=== PATIENT | female | born 1945 | race Caucasian/White ===

== ENCOUNTER → 2020-12-23 | Outpatient (CLI) | payer SELFPAY ==
[2020-12-23 10:45] LABS: Appearance,Urine Clear (Clear); Bilirubin,Urine Negative (Negative); Blood,Urine Negative (Negative); Color,Urine Yellow; Glucose,Urine (UA) Negative (Negative); Ketones,Urine Negative (Negative); Leukocyte Esterase,Urine Negative (Negative); Nitrite,Urine Negative (Negative); PH, Urine 6.5 (5.0-8.0); Protein,Urine Negative (Negative); Specific Gravity,Urine 1.012 (1.001-1.035); Urobilinogen,Urine <2.0 mg/dL (<2.0)
[2020-12-23 10:46] LABS: HCT 40.9 % (34.0-46.0); HGB 13.7 gm/dL (11.4-16.0); MCH 32.2 pg (25.0-35.0); MCHC 33.6 g/dL (31.0-37.0); Platelet Count 262 k/uL (150-450); RBC 4.26 m/uL (3.80-5.40); WBC 5.7 k/uL (3.8-10.6)
[2020-12-23 10:56] LABS: ALT 16 U/L (4-34); AST 23 U/L (14-36); African American GFR (CKD) >90 (>60 ml/min/1.73 sqM); Albumin 4.4 g/dL (3.5-5.0); Alkaline Phosphatase 74 U/L (38-126); Anion Gap 9 mmol/L; Blood Urea Nitrogen 7 mg/dL (7-17); Calcium 9.5 mg/dL (8.4-10.2); Carbon Dioxide 27 mmol/L (22-30); Chloride 97 mmol/L (98-107); Glucose 115 mg/dL (74-99); Non-African American GFR(CKD) >90 (>60 ml/min/1.73 sqM); Potassium 4.4 mmol/L (3.5-5.1); Sodium 133 mmol/L (137-145); Total Bilirubin 0.5 mg/dL (0.2-1.3); Total Protein 6.4 g/dL (6.3-8.2)
[2020-12-23 11:03] LABS: INR 0.9 (<1.2); Partial Thromboplastin Time 22.7 sec (22.0-30.0); Prothrombin Time 10.1 sec (9.0-12.0)
== END | disposition home or self-care (01) ==
LOC: LABPAT 09:17
PROVIDERS: ATTEND Orthopaedic Surgery
DX: Z01.818 Encounter for other preprocedural examination (principal); M16.11 Unilateral primary osteoarthritis, right hip; R94.31 Abnormal electrocardiogram [ECG] [EKG]
CPT/HCPCS: 36415; 80053; 81003; 85027; 85610; 85730; 87070; 93005

== ENCOUNTER 2020-12-31 11:22 | Day surgery (SDC) | payer SELFPAY ==
[2020-12-30 08:50] VITALS: BMI 19.2
[~2020-12-31 11:22] MED LIST: ACETAMINOPHEN TAB 500 MG TAB PO PRN; GABAPENTIN 300 MG CAP PO PRN; HYDROcodone/APAP 7.5-325MG 1 EACH TAB PO PRN; HYDROmorphone 0.2 MG/1 ML SYRINGE IVP PRN; HYDROmorphone 0.5 MG/0.5 ML SYRINGE IVP PRN; MAGNESIUM HYDROXIDE 2,400 MG/10 ML CUP PO PRN; MELOXICAM 7.5 MG TAB PO PRN; NALOXONE 0.4 MG/ML 1 ML VIAL IV PRN; ONDANSETRON 4 MG/2 ML VIAL IVP ONE; ONDANSETRON 4 MG/2 ML VIAL IVP PRN; TRANEXAMIC ACID 1,000 MG in SODIUM CHLORIDE 0.9% 100 ML IVPB PRN
[2020-12-31] MEDS: LACTATED RINGERS 1,000 ML IV SCH (12:20)
[2020-12-31] MEDS ORDERED: LIDOCAINE 1% (10MG/ML) FOR IV START INTRADERMA ONE (12:20)
[2020-12-31] MEDS ORDERED: DEXAMETHASONE SOD PHOSPHATE 4 MG/ML 1 ML VIAL IV ONE (12:25)
[2020-12-31] MEDS ORDERED: SODIUM CHLORIDE 0.9% IRRIG 1,000 ML BTL IRRIGATION ONE (13:31)
[2020-12-31] MEDS ORDERED: TRANEXAMIC ACID 1,000 MG/10 ML VIAL ONE (13:31)
[2020-12-31] MEDS ORDERED: HEPARIN SODIUM,PORCINE 10,000 UNIT/ML 1 ML VIAL ONE (13:31)
[2020-12-31] MEDS ORDERED: MIDAZOLAM 2 MG/2 ML VIAL ONE (13:31)
[2020-12-31] MEDS ORDERED: SODIUM CHLORIDE 0.9% 100 ML BAG ONE (13:31)
[2020-12-31] MEDS ORDERED: ceFAZolin 1,000 MG in SODIUM CHLORIDE 0.9% 1,000 ML IRRIGATION ONE (13:36)
[2020-12-31] MEDS: ROPIVACAINE/EPI/CLONIDINE/KET 50 ML SYRINGE MISCELLANE PRN ×2 (13:37→14:51)
[2020-12-31] MEDS ORDERED: LACTATED RINGERS 1,000 ML IV ONE (14:52)
--- NOTE | 2020-12-31 15:02 | P.OP ---
Date of Procedure: 12/31/20 Preoperative Diagnosis: Severe Osteoarthritis right hip Postoperative Diagnosis: Severe osteoarthritis right hip. Procedure(s) Performed: Right total hip arthroplasty with a direct anterior approach Implants: [employer] Polarstem standard size 2 [employer] R3, 3 hole hemispherical acetabular shell, 52 mm [employer] Reflection 6.5 mm cancellus screw, 20 mm 2, 25 mm [employer] R3, XLPE 20 acetabular liner [employer] Oxinium femoral head 36 m, +0 All components were press-fit. The articulation is Oxinium on polyethylene. Anesthesia: spinal Surgeon: Damien Falcon Licensed Chemical Spray Technician #1: Vangie Jauregui Estimated Blood Loss (ml): 150 (67 mL returned with Cell Saver) Pathology: other (Femoral head) Condition: stable Disposition: PACU Indications for Procedure: After failure of conservative treatment we discussed the surgical and nonsurgical treatment options at length. Patient wishes to proceed with a total hip arthroplasty with a direct anterior approach. Complications specific to this procedure were discussed at length, including but not limited to infection, leg length discrepancy, dislocation, nerve injury, and fracture. Covid-19 was also discussed at length with the patient, and they are aware of the current policies and procedures. The patient was given the option of delaying surgery, but they elect to proceed knowing these risks. Patient is aware of all these complications and informed consent was obtained Operative Findings: The operative findings are consistent with severe osteoarthritis of the right hip Description of Procedure: Patient was seen and evaluated in the preoperative area and the consent was reviewed. The operative site was marked with a skin marker. The patient was then brought to the operating room and given preoperative antibiotics intravenously. 1 g of Tranexamic acid was also given intravenously. A spinal anesthetic was administered by the anesthesia department. The patient was then placed on the [place] table with the bony prominences well-padded. The hip area was then prepped with a ChloraPrep solution and draped in the usual sterile fashion. A universal timeout was then performed, which confirmed the patient's name, surgical site, ALLERGIES, and procedure being performed on the consent. Next the incision site was located at 1 cm distal and 2 cm lateral to the anterior s uperior iliac spine. The skin and subcutaneous tissues were sharply incised. Incision was carefully dissected down to the fascia overlying the tensor fascia lyla muscle. This fascia was then incised in line with the incision. Care was taken to stay laterally in order to avoid injuring the lateral femoral cutaneous nerve. Next, using blunt finger dissection, the tensor fascia lyla muscle was d issected off its investing fascia. The muscle was then carefully retracted laterally with a cobra retractor over the lateral neck of the femur. Next, the circumflex vessels were identified and cauterized using the AquaMantis device. The anterior hip capsule was then exposed. The capsule was then opened and an inverted T fashion. Cobra retractors were then placed intracapsularly. The retractors were maintained intracapsular throughout the procedure. The proximal femur was then visualized. A small amount of traction was placed on the leg. The femoral neck was then osteotomized appropriate level above the lesser trochanter. A small wedge of bone was then removed from the remaining femoral head. Next, using a corkscrew the femoral head was removed from the acetabulum. On gross visual inspection, the femoral head had complete loss of articular cartilage and multiple periarticular osteophytes. The femoral head was then measured. Attention was then turned to the acetabulum. The acetabulum was exposed and any remaining labrum was excised. Sequential reaming of the acetabulum was performed using fluoroscopic guidance until there was a good bed of bleeding cancellus bone. When the appropriate size was reached, a trial was then placed. The position and fit of the trial was checked with fluoroscopy. The trial was then removed. Then, using fluoroscopic guidance, the final implant was impacted at 20 of anteversion and 40 of abduction, and fully seated in the acetabulum. 2 screws were then placed in the acetabulum. Again fluoroscopy was used to check position of the screws. Next, the liner was then impacted, with a 20 elevated liner located in the anterior superior quadrant. Component locking was confirmed. Attention was then directed to the femur. With the aid of the [place] table, the femur was externally rotated to approximately 130, extended, and adducted under the opposite leg. A side hook was then placed under the proximal femur, and the side hook elevator was used to elevate the proximal femur while releasing the capsule. Retractors were then placed. A capsular release was performed, as well as a release of the conjoined tendon, which afforded excellent visualization of the proximal femur. Next, a box osteotome was used to lateralize the proximal femur. A assistant merchandise manager was then used to locate the femoral canal. Sequential broaching was then performed with appropriate size which afforded excellent fixation in the proximal femur. A trial was then placed with appropriate head and neck, and the hip was gently reduced with the aid of the [place] table. Fluoroscopy was then used to check position of the components, as well as to ensure equal leg lengths. The hip was then gently dislocated and the trials were then removed. Final implants were then impacted and the hip was again reduced. Final fluoroscopic x-rays confirmed that the components were in anatomic position, as well as equal leg lengths. The hip was also taken through range of motion, and found to be stable. The hip was then copiously irrigated with antibiotic solution with pulsatile lavage. The hip was then irrigated with Irrisept solution. The soft tissues we re then injected with a ropivacaine solution, which consisted of 246.25 mg of ropivacaine, 0.5 mg of epinephrine, 30 mg of Toradol, 80 g of clonidine, and 48.45 mL of sterile water, for a total of 100 mL of fluid injected. A second dose of 1 g of Tranexamic acid was also given intravenously. Any blood collected by Cell Saver was then returned to the patient at this time. The fascia was then closed with 2-0 strata fix suture. The subcutaneous tissue was closed with 3-0 Vicryl. The subcuticular tissue was closed with 3-0 strata fix suture. The skin was then closed with Exofin skin glue. After the glue and dried, and Optifoam silver impregnated dressing was applied. The patient was then transferred to the recovery room in stable condition. The administrative assistant URI Hamilton was required due to the complexity of surgery, and the need for skilled assistant director for positioning, draping, exposure, retraction, and closure of the wound.
--- NOTE | 2020-12-31 15:21 | XR ---
Fluoroscopy INDICATION: Pain FINDINGS: Fluoroscopy time: 4 seconds. Images obtained: 6. IMPRESSIONS: 1. Documentation of fluoroscopy.
--- NOTE | 2020-12-31 15:26 | FL ---
Fluoroscopy INDICATION: Pain FINDINGS: Fluoroscopy time: 47 seconds. Images obtained: 0. IMPRESSIONS: 1. Documentation of fluoroscopy.
--- NOTE | 2020-12-31 16:19 | XR ---
EXAMINATION TYPE: XR Hip Limited RT DATE OF EXAM: 12/31/2020 COMPARISON: None HISTORY: Status post replacement TECHNIQUE: AP right hip FINDINGS: There is a femoral prosthesis place with acetabular component. No acute fractures are evide nt. Postsurgical changes are evident within the soft tissues of the proximal thigh. IMPRESSION: 1. No acute fractures post right hip replacement
--- NOTE | 2020-12-31 16:52 | P.CONS ---
History of Present Illness - Reason for Consult Consult date: 12/31/20 Medical management Requesting physician: Damien Falcon - Chief Complaint Right hip osteoarthritis - History of Present Illness This is a 75-year-old female with no significant past medical history other than severe osteoarthritis of the right hip who was admitted to the hospital for elective total right hip arthroplasty. She is postoperative day #0. She does not have any complaints. I was asked to see her for medical management. Patient denies any past medical history. Review of Systems Review of system: 14 points review of systems were obtained and were negative except to what were mentioned in the HPI. Past Medical History Past Medical History: GERD/Reflux, Musculoskeletal Disorder, Osteoarthritis (OA) Additional Past Medical History / Comment(s): Osteoporosis. Hiatal hernia. History of Any Multi-Drug Resistant Organisms: None Reported Past Surgical History: Hernia Repair, Tonsillectomy Additional Past Surgical History / Comment(s): RIGHT INGUINAL HERNIA REPAIR, RIGHT HAND SURGERY, Bilateral Cataract surgery. Past Anesthesia/Blood Transfusion Reactions: No Reported Reaction, Motion Sickness Past Psychological History: No Psychological Hx Reported Smoking Status: Never smoker Past Alcohol Use History: Rare Past Drug Use History: None Reported - Past Family History Mother Family Medical History: Cancer Additional Family Medical History / Comment(s): Melanoma. Medications and Allergies Home Medications Medication Instructions Recorded Confirmed Type Acetaminophen [Tylenol Extra 500 mg PO QID PRN 04/23/20 12/30/20 History Strength] Cholecalciferol [Vitamin D3 (25 2,000 unit PO BID 04/23/20 12/30/20 History Mcg = 1000 Iu)] Cyanocobalamin [Vitamin B-12 1,000 mcg SQ QMONTHLY 04/23/20 12/30/20 History Injection] Denosumab [Prolia] 60 mg SQ Q180D 04/23/20 12/30/20 History Omega3/Dha/Epa/Fish Oil/Vit D3 1 each PO DAILY 04/23/20 12/30/20 History [[place]-3 + Vitamin D3 Softgel] Tecta 40 mg PO TID 04/23/20 12/30/20 History Calcium Carbonate [Calcium] 600 mg PO DIRECTED PRN 12/30/20 12/30/20 History Vitamin C (Unknown Dose) 1 tab PO DAILY 12/30/20 12/30/20 History Aspirin 325 mg PO BID #60 tab 12/31/20 Rx Gabapentin [Neurontin] 100 mg PO BID 12/31/20 12/31/20 History HYDROcodone/APAP 7.5-325MG [[place] 1 - 2 tab PO Q6H PRN #32 tab 12/31/20 Rx 7.5-325] Ondansetron Odt [Zofran Odt] 1 tab PO Q8HR PRN #10 tab 12/31/20 Rx Sennosides [Senokot] 2 tab PO DAILY PRN #60 tablet 12/31/20 Rx Allergies Allergy/AdvReac Type Severity Reaction Status Date / Time No Known Allergies Allergy Verified 12/31/20 11:47 Physical Exam Vitals: Vital Signs Temp Pulse Pulse Resp BP Pulse Ox 12/31/20 16:02 75 16 136/63 99 12/31/20 15:46 82 16 141/61 99 12/31/20 15:31 78 14 121/60 99 12/31/20 15:15 97 F L 76 14 106/64 99 12/31/20 11:59 97.1 F L 83 16 128/66 99 Intake and Output 12/31/20 12/31/20 12/31/20 06:59 14:59 22:59 Intake Total 951 0 Output Total 150 Balance 951 -150 Intake: IV 951 0 Output: Estimated Blood Loss 150 Other: Weight 48.6 kg General: The patient is awake and alert, in no distress Eye: there is normal conjunctiva bilaterally. Neck: The neck is supple, there is no JVD. Cardiovascular: Normal S1-S2, no S3-S4, no murmurs. Respiratory: Lungs clear to auscultation bilaterally Gastrointestinal: Abdomen is soft, nontender Musculoskeletal: There is no pedal edema. Neurological:. Speech is normal. Skin: Skin is warm and dry Assessment and Plan Assessment: This is a 75-year-old female was admitted to the hospital postoperative day #0 status post elective total right hip arthroplasty. Postoperative care, pain control, and DVT prophylaxis per orthopedic protocol. Patient is currently on full dose aspirin twice daily. Check CBC and BMP in the morning. No significant underlying medical problems otherwise. Thank you for the consultation.
[2020-12-31] MEDS: SODIUM CHLORIDE 0.9% 1,000 ML IV SCH (20:32)
[2020-12-31] MEDS ORDERED: SENNOSIDES-DOCUSATE SODIUM 1 EACH TAB PO SCH (21:00)
[2020-12-31] MEDS: GABAPENTIN 100 MG CAP PO SCH (21:27)
[2020-12-31] MEDS: CHOLECALCIFEROL 25 MCG (1000 IU) TABLET PO SCH (21:27)
[2020-12-31] MEDS: ASPIRIN 325 MG TAB PO SCH (21:27)
[2021-01-01] MEDS: LACTATED RINGERS 1,000 ML IV SCH (04:59)
[2021-01-01] MEDS: SODIUM CHLORIDE 0.9% 1,000 ML IV SCH (05:25)
[2021-01-01 08:09] VITALS: BP 129/63; PULSE 79; RESP 14; TEMP 98.2
[2021-01-01] MEDS ORDERED: EPA PO SCH (09:00)
[2021-01-01] MEDS ORDERED: DHA PO SCH (09:00)
[2021-01-01] MEDS ORDERED: ASCORBIC ACID 500 MG TAB PO SCH (09:00)
[2021-01-01] MEDS ORDERED: [UNRECOGNIZED DRUG - OTHER] PO SCH (09:00)
[2021-01-01] MEDS ORDERED: VIT D3 PO SCH (09:00)
[2021-01-01] MEDS ORDERED: OMEGA3 PO SCH (09:00)
[2021-01-01] MEDS ORDERED: FISH OIL PO SCH (09:00)
[2021-01-01] MEDS: ASPIRIN 325 MG TAB PO SCH (09:33)
[2021-01-01] MEDS: CHOLECALCIFEROL 25 MCG (1000 IU) TABLET PO SCH (09:33)
[2021-01-01] MEDS: GABAPENTIN 100 MG CAP PO SCH (09:33)
[2021-01-01 09:38] LABS: Basophils # (A) 0.01 X 10*3/uL (0.00-0.10); Basophils % (A) 0.1 %; Eosinophils # (A) 0.01 X 10*3/uL (0.04-0.35); Eosinophils % (A) 0.1 %; HCT 31.6 % (37.2-46.3); HGB 10.2 g/dL (12.0-15.0); Lymphocytes # (A) 1.55 X 10*3/uL (0.90-5.00); Lymphocytes % (A) 14.7 %; MCH 30.2 pg (27.0-32.0); MCHC 32.3 g/dL (32.0-37.0); MCV 93.5 fL (80.0-97.0); Mean Platelet Volume 9.7 fL (9.5-12.2); Monocytes # (A) 1.08 X 10*3/uL (0.20-1.00); Monocytes % (A) 10.2 %; Neutrophils # (A) 7.85 X 10*3/uL (1.80-7.70); Neutrophils % (A) 74.4 %; Platelet Count 204 X 10*3/uL (140-440); RBC 3.38 X 10*6/uL (4.10-5.20); RDW 13.3 % (11.5-14.5); WBC 10.55 X 10*3/uL (4.50-10.00)
--- NOTE | 2021-01-01 10:18 | P.DS ---
Providers Expected date of discharge: 01/01/21 Attending physician: Damien Falcon Consults: 12/31/20 10:56 Consult Physician Routine Consulting Provider: Dolores Schmitt Consult Reason/Comments: medical management Do you want consulting provider notified?: Yes Primary care physician: Stated None - Discharge Diagnosis(es) (1) Osteoarthritis of right hip Current Visit: Yes Status: Acute (2) Status post total hip replacement, right Current Visit: Yes Status: Acute Hospital Course: This is a 75-year-old female with known history of degenerative arthritis of the right hip. The patient presents for evaluation. After discussion and consideration patient elects to proceed with total right hip arthroplasty with anterior approach. The patient is seen preoperatively by her primary care physician and cleared for surgery. Patient is admitted to [facility] on 12/31/2020 for total hip arthroplasty with direct anterior approach. The procedures performed without complication or sequelae. The patient is doing well postoperatively. Labs and vital signs are stable on day of discharge. On day of discharge patient's hip incision is healing well. There is minimal erythema. There is no drainage noted at this time. There is minimal soft ti ssue swelling to the hip and thigh. Patient has full foot and ankle motion without difficulty or pain. Neurovascular status to the right lower extremity is intact. Patient is discharged to home in good condition. Please see med rec for accurate list of home medications. Patient Condition at Discharge: Good Plan - Discharge Summary Discharge Rx Participant: No New Discharge Prescriptions: New Aspirin 325 mg PO BID #60 tab HYDROcodone/APAP 7.5-325MG [[place] 7.5-325] 1 - 2 tab PO Q6H PRN #32 tab PRN Reason: Pain Sennosides [Senokot] 2 tab PO DAILY PRN #60 tablet PRN Reason: Constipation Ondansetron Odt [Zofran Odt] 1 tab PO Q8HR PRN #10 tab PRN Reason: Nausea No Action Acetaminophen [Tylenol Extra Strength] 500 mg PO QID PRN PRN Reason: Pain Cyanocobalamin [Vitamin B-12 Injection] 1,000 mcg SQ QMONTHLY Denosumab [Prolia] 60 mg SQ Q180D Cholecalciferol [Vitamin D3 (25 Mcg = 1000 Iu)] 2,000 unit PO BID Omega3/Dha/Epa/Fish Oil/Vit D3 [[place]-3 + Vitamin D3 Softgel] 1 each PO DAILY Tecta 40 mg PO TID Vitamin C (Unknown Dose) 1 tab PO DAILY Gabapentin [Neurontin] 100 mg PO BID Calcium Carbonate [Calcium] 600 mg PO DIRECTED PRN PRN Reason: When Calcium low in diet. Discharge Medication List Acetaminophen [Tylenol Extra Strength] 500 mg PO QID PRN 04/23/20 [History] Cholecalciferol [Vitamin D3 (25 Mcg = 1000 Iu)] 2,000 unit PO BID 04/23/20 [History] Cyanocobalamin [Vitamin B-12 Injection] 1,000 mcg SQ QMONTHLY 04/23/20 [History] Denosumab [Prolia] 60 mg SQ Q180D 04/23/20 [History] Omega3/Dha/Epa/Fish Oil/Vit D3 [[place]-3 + Vitamin D3 Softgel] 1 each PO DAILY 04/23/20 [History] Tecta 40 mg PO TID 04/23/20 [History] Calcium Carbonate [Calcium] 600 mg PO DIRECTED PRN 12/30/20 [History] Vitamin C (Unknown Dose) 1 tab PO DAILY 12/30/20 [History] Aspirin 325 mg PO BID #60 tab 12/31/20 [Rx] Gabapentin [Neurontin] 100 mg PO BID 12/31/20 [History] HYDROcodone/APAP 7.5-325MG [[place] 7.5-325] 1 - 2 tab PO Q6H PRN #32 tab 12/31/20 [Rx] Ondansetron Odt [Zofran Odt] 1 tab PO Q8HR PRN #10 tab 12/31/20 [Rx] Sennosides [Senokot] 2 tab PO DAILY PRN #60 tablet 12/31/20 [Rx] Follow up Appointment(s)/Referral(s): Damien Falcon DO [Doctor of Osteopathic Medicine] - 01/16/21 2:00 pm (With Vangie) Activity/Diet/Wound Care/Special Instructions: Weightbearing as tolerated with walker. Leave dressing intact. Dressing may be removed by home care nurse or by patient in 7 days. Then change dressing twice daily until follow up. May shower with initial dressing intact and after removal. If dressing become saturated, please remove. Please take aspirin 325mg twice daily for 30 days to prevent blood clots. Recommend use of compression stockings daily until follow up to help prevent swelling and blood clots. May remove at night before sleeping. Please follow-up with [facility] in 2 weeks and call with any questions or concerns, . Discharge Disposition: HOME WITH HOME HEALTH SERVICES
[2021-01-01 11:16] LABS: African American GFR (CKD) 110.5 (60.0-200.0); Calcium 8.2 mg/dL (8.7-10.3); Non-African American GFR(CKD) 95.3 (60.0-200.0); Potassium 3.9 mmol/L (3.5-5.5)
--- NOTE | 2021-01-01 13:25 | P.PN ---
Subjective Patient was seen and evaluated by me this morning. She was also to stop and ready to be discharged. Objective - Vital Signs Vital signs: Vital Signs Temp 98.2 F 01/01/21 08:00 Pulse 79 01/01/21 08:00 Resp 14 01/01/21 08:00 BP 129/63 01/01/21 08:00 Pulse Ox 97 01/01/21 08:00 Intake & Output 12/31/20 01/01/21 01/01/21 18:59 06:59 18:59 Intake Total 951 1060 Output Total 150 Balance 801 1060 Weight 48.6 kg Intake: IV 951 Intake, IV Titration 460 Amount Sodium Chloride 0.9% 1, 360 000 ml @ 60 mls/hr IV . [id number] [facility] Rx#:[id number] ceFAZolin 2 gm In Sodium 100 Chloride 0.9% 50 ml @ 100 mls/hr IVPB Q8H [facility] Rx#: [id number] Oral 600 Output: Estimated Blood Loss 150 Other: Voiding Method Bedside Commode Bedside Commode # Voids 1 2 # Bowel Movements 0 - Exam General: The patient is awake and alert, in no distress Eye: there is normal conjunctiva bilaterally. Neck: The neck is supple, there is no JVD. Cardiovascular: Normal S1-S2, no S3-S4, no murmurs. Respiratory: Lungs clear to auscultation bilaterally Gastrointestinal: Abdomen is soft, nontender Musculoskeletal: There is no pedal edema. Neurological:. Speech is normal. Skin: Skin is warm and dry - Labs CBC & Chem 7: 01/01/21 06:18 01/01/21 06:18 Labs: Abnormal Lab Results - Last 24 Hours (Table) 01/01/21 01/01/21 Range/Units 06:18 06:18 WBC 10.55 H (4.50-10.00) X 10*3/uL RBC 3.38 L (4.10-5.20) X 10*6/uL Hgb 10.2 L (12.0-15.0) g/dL Hct 31.6 L (37.2-46.3) % Immature Gran # 0.05 H (0.00-0.04) X 10*3/uL Neutrophils # 7.85 H (1.80-7.70) X 10*3/uL Monocytes # 1.08 H (0.20-1.00) X 10*3/uL Eosinophils # 0.01 L (0.04-0.35) X 10*3/uL Creatinine 0.5 L (0.6-1.5) mg/dL Calcium 8.2 L (8.7-10.3) mg/dL Assessment and Plan Assessment: This is a 75-year-old female was admitted to the hospital postoperative day #1 status post elective total right hip arthroplasty. Postoperative care, pain control, and DVT prophylaxis per orthopedic protocol. Patient is currently on full dose aspirin twice daily. I reviewed her lab work results.. No significant underlying medical problems otherwise. Patient is medically cleared for discharge.
[2021-01-02] MEDS ORDERED: CYANOCOBALAMIN 1,000 MCG/ML 1 ML VIAL SQ SCH (12:00)
== END 2021-01-01 12:00 | disposition home health service (06) ==
LOC: OR 11:22 → 4SSUR 15:26 → OR 01-01 12:00
PROVIDERS: ATTEND Orthopaedic Surgery
DX: M16.11 Unilateral primary osteoarthritis, right hip (principal); Z20.822 Contact with and (suspected) exposure to COVID-19; M81.0 Age-related osteoporosis without current pathological fracture; K21.9 Gastro-esophageal reflux disease without esophagitis; Z79.899 Other long term (current) drug therapy; H26.9 Unspecified cataract; H91.90 Unspecified hearing loss, unspecified ear
CPT/HCPCS: 97110; 97161; 97535; 97165; 86891; 86900; 86901; 80048; 85025; 86850; 88300; 87635; 73501; 27130; C1776; J2250; J1644; J1100; J0690 ×3; J2405